=== PATIENT | female | born 1955 | race Hispanic/Latino ===

== ENCOUNTER 2016-07-30 14:39 | Emergency (ER) | payer BC, OTHER ==
[2016-07-30 14:57] VITALS: BP 137/95; RESP 18; TEMP 97.8; O2SAT 100
--- NOTE | 2016-07-30 15:55 | C.PDOC ---
History Of Present Illness A 61 year old female presents to the emergency room for the evaluation of left wrist pain that developed yesterday. Patient reports the pain started after "banging her hand on the wall." Patient notes that the pain is localized along the radial aspect and worst with movement. Patient denies weakness, any obvious deformity, numbness, weakness, any sensory changers, or any other complaints. Time Seen by Provider: 07/30/16 15:28 Chief Complaint (Nursing): Finger,Hand,&Wrist History Per: Patient History/Exam Limitations: no limitations Onset/Duration Of Symptoms: Days (1) Current Symptoms Are (Timing): Still Present Quality: "Pain" Severity: Mild Exacerbating Factor(s): Movement Recent travel outside of the [place]: No Past Medical History Reviewed: Historical Data, Nursing Documentation, Vital Signs Vital Signs: Last Vital Signs Temp 97.8 F 07/30/16 14:53 Pulse 75 07/30/16 16:04 Resp 18 07/30/16 16:04 BP 137/95 H 07/30/16 14:53 Pulse Ox 100 07/30/16 16:04 - [facility] Procedures APPLICATION OF SPLINT (12/19/13) Family History: States: No Known Family Hx - Social History Hx Tobacco Use: No Hx Alcohol Use: Yes Hx Substance Use: No - Immunization History Hx Tetanus Toxoid Vaccination: No Hx Influenza Vaccination: No Hx Pneumococcal Vaccination: No Review Of Systems Except As Marked, All Systems Reviewed And Found Negative. Constitutional: Negative for: Fever, Chills Cardiovascular: Negative for: Chest Pain Respiratory: Negative for: Shortness of Breath Gastrointestinal: Negative for: Nausea, Vomiting, Diarrhea Musculoskeletal: Positive for: Other (Left wrist pain) Neurological: Negative for: Weakness, Numbness Physical Exam - Physical Exam Appears: Well, Non-toxic, No Acute Distress Skin: Normal Color, Warm, No Rash, No Ecchymosis Extremity: Tenderness (over dorsal aspect left distal radius extend to volar aspect. No edema, no erythema, no palpable deformity. NO neurovascular deficits distally to injury.), Capillary Refill (less than 2sec to Left hand), No Deformity, No Swelling Neurological/Psych: Oriented x3, Normal Speech, Normal Motor, Normal Sensation, Normal Reflexes ED Course And Treatment O2 Sat by Pulse Oximetry: 100 Pulse Ox Interpretation: Normal - Other Rad Left wrist X-Ray: Interpreted by Me, Viewed By Me Interpretation: no acute fx Progress Note: On re-eavl, pt is afebrile, hemodynamicaly stable. Non-toxic. Left wrist: exam c/w contusion. FAROM, no neurovascular deficits. XRay (-) acute fx. Volar splint applied, analgesics given. Pt adised. ref. to f/u with Ortho in 2-3 days for re-eval. return if any new changes. Disposition Counseled Patient/Family Regarding: Studies Performed, Diagnosis, Need For Followup, Rx Given - Disposition Referrals: Lali Arango MD [Staff Provider] - Disposition: HOME/ ROUTINE Disposition Time: 15:55 Condition: STABLE Additional Instructions: Splint Light duty for 1 week Take pain medication as need Follow up with PMD, Orthopedist in 2-3 days for re-evaluation. Return to ED if any worsening or new changes. Prescriptions: traMADol [Ultram] 50 mg PO TID #7 tab Instructions: Wrist Injury (ED) - Clinical Impression Clinical Impression: Wrist contusion - Scribe Statement The provider has reviewed the documentation as recorded by the Neil Da Silva Provider Scribe Attestation: All medical record entries made by the Beatriceibminerva were at my direction and personally dictated by me. I have reviewed the chart and agree that the record accurately reflects my personal performance of the history, physical exam, medical decision making, and the department course for this patient. I have also personally directed, reviewed, and agree with the discharge instructions and disposition.
--- NOTE | 2016-07-30 16:04 | RAD ---
PROCEDURE: Left Hand Radiographs. HISTORY: injury COMPARISON: None available. FINDINGS: BONES: No acute displaced fracture. JOINTS: No dislocation. SOFT TISSUES: Unremarkable. No evidence of radiopaque foreign body. OTHER FINDINGS: None. IMPRESSION: No acute displaced fracture, dislocation, or significant joint effusion identified. If symptoms persist, or if there is continued clinical concern, x-ray follow-up in 7-10 days should be considered.
[2016-07-30 16:06] VITALS: PULSE 75
== END 2016-07-30 16:19 | disposition home or self-care (01) ==
LOC: C.ER 14:39
DX: S60.212A Contusion of left wrist, initial encounter (principal); W22.01XA Walked into wall, initial encounter; Y92.009 Unspecified place in unspecified non-institutional (private) residence as the place of occurrence of the external cause